=== PATIENT | female | born 1965 | race Caucasian/White ===

== ENCOUNTER 2017-12-27 06:10 | Day surgery (SDC) | payer OTHER ==
[~2017-12-27] VITALS: Ht 132.1 cm; Wt 36.7 kg
[2017-12-27] MEDS ORDERED: BUPIVACAINE-MPF/EPI 0.25% 30 ML VIAL INJ ONE (07:29)
[2017-12-27] MEDS ORDERED: CEFAZOLIN SODIUM 1 GM/D5W PM 50 ML IV SCH (07:30)
[2017-12-27] MEDS ORDERED: NEOSTIGMINE 1:1000 10 MG/10 ML VIAL ONE (07:36)
[2017-12-27] MEDS ORDERED: LIDOCAINE 2% 100 MG/5 ML SYR IVP ONE (07:36)
[2017-12-27] MEDS ORDERED: DEXAMETHASONE 4 MG/ML VIAL ONE (07:36)
[2017-12-27] MEDS ORDERED: DESFLURANE 240 ML BTL INH ONE (07:36)
[2017-12-27] MEDS ORDERED: ONDANSETRON 4 MG/2 ML VIAL ONE (07:36)
[2017-12-27] MEDS ORDERED: GLYCOPYRROLATE 0.2 MG/ML VIAL ONE (07:36)
[2017-12-27] MEDS ORDERED: ROCURONIUM 50 MG/5 ML VIAL IV ONE (07:36)
[2017-12-27] MEDS ORDERED: PROPOFOL 200 MG/20 ML VIAL IV ONE (07:36)
[2017-12-27] MEDS ORDERED: SUCCINYLCHOLINE CHLORIDE 200 MG/10 ML VIAL IVP ONE (07:36)
[2017-12-27] MEDS ORDERED: fentaNYL 0.05 MG/ML VIAL ONE (07:39)
[2017-12-27] MEDS ORDERED: MIDAZOLAM 2 MG/2 ML VIAL ONE (07:39)
[2017-12-27] MEDS ORDERED: HYDROmorphone 1 MG/ML AMP IVP PRN (08:20)
[2017-12-27] MEDS ORDERED: ONDANSETRON 4 MG/2 ML VIAL IVP PRN (08:20)
[2017-12-27] MEDS ORDERED: NACL 0.9% 1,000 ML IV SCH (09:14)
[2017-12-27] MEDS ORDERED: HYDROcodone/APAP 5/325 MG 1 TAB TAB PO PRN (09:15)
[2017-12-27] MEDS ORDERED: ONDANSETRON 4 MG/2 ML VIAL IV PRN (09:15)
[2017-12-27] MEDS ORDERED: ACETAMINOPHEN 325 MG TAB PO PRN (09:15)
[2017-12-27] MEDS ORDERED: MORPHINE SULFATE 4 MG/ML SYR IV PRN (09:15)
[2017-12-27] MEDS ORDERED: MORPHINE SULFATE 2 MG/ML SYR IVP PRN (09:15)
[2017-12-27] MEDS ORDERED: HYDROmorphone PFS 2 MG/ML SYR ONE (09:43)
== END 2017-12-27 11:20 | disposition home or self-care (01) ==
LOC: MDS 06:10 → MMU 06:11 → MDS 11:20
PROVIDERS: ATTEND Surgery
DX: K80.11 Calculus of gallbladder with chronic cholecystitis with obstruction (principal); Q90.9 Down syndrome, unspecified; Z98.890 Other specified postprocedural states
CPT/HCPCS: 36415; 47562; 71045; 81025; 82374; 86886; 86900; 86901; C1887; J0330; J0690; J1100; J1170; J2001; J2250; J2405; J2704; J2710; J3010; J3490; J7030; J7120